=== PATIENT | female | born 1960 | race Caucasian/White ===

== ENCOUNTER 2024-05-03 06:18 | Day surgery (SDC) | payer OTHER ==
[~2024-05-03] VITALS: Ht 154.9 cm; Wt 78.9 kg
[2024-05-03] MEDS ORDERED: fentaNYL citrate 0.05 MG/ML VIAL ONE (07:34)
[2024-05-03 07:50] LABS: BASOPHILS # (AUTO) 0.1 K/uL (0.00-0.22); BASOPHILS % (AUTO) 1.5 % (0.0-2.0); EOSINOPHILS # (AUTO) 0.2 K/uL (0-0.4); EOSINOPHILS % (AUTO) 3.4 % (0.0-4.0); HEMATOCRIT 41.9 % (36-48); HEMOGLOBIN 14.2 g/dL (12.0-16.0); LYMPHOCYTES # (AUTO) 1.5 K/uL (2.5-16.5); LYMPHOCYTES % (AUTO) 31.6 % (20.5-51.1); MEAN CORPUSCULAR HEMOGLOBIN 31 pg (27-31); MEAN CORPUSCULAR HGB CONC 34 g/dL (33-37); MEAN CORPUSCULAR VOLUME 91.6 fL (80-94); MONOCYTES # (AUTO) 0.4 K/uL (0.8-1.0); MONOCYTES % (AUTO) 8.7 % (1.7-9.3); NEUTROPHILS # (AUTO) 2.5 K/uL (1.8-7.7); NEUTROPHILS % (AUTO) 54.8 % (42.2-75.2); PLATELET COUNT (AUTO) 229 K/uL (140-450); RED BLOOD CELL COUNT(AUTO) 4.58 MIL/uL (4.20-5.40); RED CELL DISTRIBUTION WIDTH 13.8 % (11.6-13.7); WHITE BLOOD COUNT (AUTO) 4.7 K/uL (4.8-10.8)
[2024-05-03] MEDS: LIDOCAINE 2% 1000 MG/50 ML VIAL INJ ONE (08:08)
[2024-05-03] MEDS: fentaNYL citrate 0.05 MG/ML VIAL IVP ONE (08:10)
[2024-05-03 08:25] LABS: INR 1.05 (0.8-1.2); PARTIAL THROMBOPLASTIN TIME 25.8 secs (22-35.6)
[2024-05-03] MEDS ORDERED: ONDANSETRON 4 MG/2 ML VIAL ONE (08:39)
[2024-05-03] MEDS ORDERED: ACETAMINOPHEN 325 MG TAB ONE (08:41)
[2024-05-03] MEDS: ONDANSETRON 4 MG/2 ML VIAL IVP ONE (08:52)
[2024-05-03] MEDS: ACETAMINOPHEN 325 MG TAB PO ONE (08:54)
== END 2024-05-03 09:40 | disposition home or self-care (01) ==
LOC: MDS 06:18 → MMU 06:30 → MDS 09:40
PROVIDERS: ATTEND Internal Medicine Gastroenterology
DX: R94.5 Abnormal results of liver function studies (principal); K75.81 Nonalcoholic steatohepatitis (NASH); I10 Essential (primary) hypertension; E11.9 Type 2 diabetes mellitus without complications; Z90.710 Acquired absence of both cervix and uterus; Z90.49 Acquired absence of other specified parts of digestive tract; Z79.84 Long term (current) use of oral hypoglycemic drugs; Z79.899 Other long term (current) drug therapy
CPT/HCPCS: 36415; 47000; 76942; 82948; 85025; 85610; 85730; 88307; 88313; J2003; J2405; J3010; Q0092